=== PATIENT | female | born 1985 | race Caucasian/White ===

== ENCOUNTER → 2018-08-15 | Outpatient (CLI) | payer OTHER | END | disposition home or self-care (01) | LOC: PRENATAL 10:00 → EDBD 10:00 | DX: O28.2 Abnormal cytological finding on antenatal screening of mother (principal); O09.02 Supervision of pregnancy with history of infertility, second trimester ==

== ENCOUNTER 2018-11-21 09:44 | Inpatient (IN) | payer OTHER ==
[~2018-11-21] VITALS: Ht 162.6 cm; Wt 73.9 kg
[2018-12-30] MEDS ORDERED: PRENATAL TABLE1 EACH PO (14:30)
== END 2019-01-02 18:11 | disposition home or self-care (01) | DRG 807 ==
LOC: OB/GYN 11-28 14:45 → LDR 12-30 10:21 → OB/GYN 12-31 19:17
PROVIDERS: ADMIT Specialist
PROC: 4A1HXCZ Monitoring of Products of Conception, Cardiac Rate, External Approach (ICD-10-PCS; 2018-12-30)
PROC: 10E0XZZ Delivery of Products of Conception, External Approach (ICD-10-PCS; principal; 2018-12-31)
PROC: 0W8NXZZ Division of Female Perineum, External Approach (ICD-10-PCS; 2018-12-31)
DX: O80 Encounter for full-term uncomplicated delivery (principal); Z37.0 Single live birth; Z3A.40 40 weeks gestation of pregnancy